=== PATIENT | male | born 1995 | race Native Hawaiian/Other Pacific Islander ===

== ENCOUNTER 2022-01-27 22:01 | Emergency (ER) | payer SELFPAY ==
[2022-01-27 22:16] VITALS: BP 114/67
--- NOTE | 2022-01-27 22:53 | XRay Report ---
CHEST 2 VIEWS INDICATION / CLINICAL INFORMATION: CHEST PAIN. COMPARISON: None available. FINDINGS: SUPPORT DEVICES: None. HEART / MEDIASTINUM: No significant abnormality. LUNGS / PLEURA: No significant pulmonary or pleural abnormality. No pneumothorax. BONES: No significant osseous abnormality. ADDITIONAL FINDINGS: No significant additional findings. IMPRESSION: 1. No active cardiopulmonary disease. Signer Name: James Marie II, MD Signed: 01/27/2022 10:49 PM Workstation Name: [id number]
--- NOTE | 2022-01-30 13:17 | Electrocardiograph Report ---
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
== END 2022-01-29 16:20 | disposition left against medical advice (07) ==
LOC: ED 22:01
DX: R07.9 Chest pain, unspecified (principal); Z53.21 Procedure and treatment not carried out due to patient leaving prior to being seen by health care provider
CPT/HCPCS: 71046; 93005

== ENCOUNTER 2022-01-28 07:57 | Emergency (ER) | payer SELFPAY ==
[2022-01-28 09:24] VITALS: BP 98/50
--- NOTE | 2022-01-30 13:28 | Electrocardiograph Report ---
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
== END 2022-01-29 08:48 | disposition left against medical advice (07) ==
LOC: ED 07:57
DX: R07.9 Chest pain, unspecified (principal); Z53.21 Procedure and treatment not carried out due to patient leaving prior to being seen by health care provider
CPT/HCPCS: 93005